=== PATIENT | female | born 1985 | race Caucasian/White ===

== ENCOUNTER → 2017-01-18 | Outpatient (CLI) | payer OTHER ==
[~2017-01-18] MED LIST: PREN0.01 PO
[2017-01-18 12:06] LABS: BETA HCG QUANT 413 MIU/ML (0-5)
== END ==
LOC: CLAB 11:14
PROVIDERS: ATTEND Obstetrics & Gynecology
DX: O26.21 Pregnancy care for patient with recurrent pregnancy loss, first trimester (principal)
CPT/HCPCS: 36415; 84144; 84702

== ENCOUNTER → 2017-01-22 | Outpatient (CLI) | payer OTHER ==
[2017-01-22 10:13] LABS: BETA HCG QUANT 1840 MIU/ML (0-5)
== END ==
LOC: CLAB 09:07
PROVIDERS: ATTEND Obstetrics & Gynecology
DX: O26.21 Pregnancy care for patient with recurrent pregnancy loss, first trimester (principal)
CPT/HCPCS: 36415; 84144; 84702

== ENCOUNTER 2017-06-08 20:06 | Emergency (ER) | payer OTHER ==
[2017-06-08] MEDS ORDERED: ACETAMINOPHEN 500 MG CPLT PO ONE (21:30)
--- NOTE | 2017-06-08 22:12 | PD ---
History of Present Illness History of Present Illness Limited ultrasound Indications: IUP at 24.2, status post fall at 6 PM Limited bedside ultrasound was performed to assess for movement, grossly assess amniotic fluid, and evaluate for retroplacental clot. An anatomic survey and detailed ultrasound was not performed. The patient was notified of this. On ultrasound the fetus was in the cephalic presentation with grossly normal CHRIS. The fetus was moving well with numerous episodes of flexion/ extension and gross movement. The placenta appeared intact without evidence of retroplacental clot and appeared to be primarily posterior in nature. Follow-up: Follow-up as clinically indicated Final diagnosis: IUP at 24.2, status post fall at 6 PM, reassuring evaluation Joan Patrick MD Jun 08, 2017 22:12
--- NOTE | 2017-06-08 22:12 | PD ---
HPI Chief Complaint Fall at 6 PM Travel History International Travel<30 Days: No Contact w/Intl Traveler<30Days: No Known Affected Area: No History of Present Illness HPI 32-year-old 011, IUP at 24.2 care complicated by prior delivery, A minus blood type The patient presents complaining of a fall at 6 PM. She reports that she was walking down a short flight of 4-5 stairs when she stepped down and landed on uneven block she then proceeded to slip down 2 stairs and fall on her hands and knees but did hit the left side of her abdomen. She, per her report, did not have direct abdominal trauma although she did hit the left to mid portion of her abdomen. She reports that her left knee is sore and her body is overall sore like she pulled a muscle. She feels like she may have also pulled a muscle in her abdomen. She denies specific abdominal pain. She denies any leaking of fluid, vaginal bleeding, painful contractions, or other uterine cramping. She reports good movement. She reports that she has a low pain tolerance. Weeks Gestation: 24 Para: 1 : 3 History Past Medical History Medical History: Denies Significant Hx Obstetric History Obstetric History Full-term delivery 1 SAB 1 Past Surgical History Narrative Surgical delivery 1 Family History Narrative Family History Denies Social History Alcohol Use: No Tobacco Use: No Substance Abuse: No Allergies-Medications (Allergen,Severity, Reaction): Coded Allergies: No Known Allergies (Unverified , 01/01/16) Home Meds Reported Medications Multivit/Min/Fol Ac/Iron/Pren ( Vit ( Plus)) Tab, 1 TAB PO DAILY, TAB 05/02/14 Review of Systems Except as stated in HPI: all other systems reviewed are Neg (except as per history of present illness) Physical Exam Narrative GENERAL: Well-nourished, well-developed patient. SKIN: Warm and dry. HEAD: Normocephalic and atraumatic. EYES: No scleral icterus. No injection or drainage. ENT: No nasal drainage noted. Mucous membranes pink. Airway patent. NECK: Supple, trachea midline. No JVD. CARDIOVASCULAR: Regular rate and rhythm without murmurs, gallops, or rubs. RESPIRATORY: Breath sounds equal bilaterally. No accessory muscle use. BREASTS: Deferred ABDOMEN/GI: Abdomen soft, non-tender, bowel sounds present, no rebound, no guarding Gravid., No abdominal tenderness on palpation, no bruising noted GENITOURINARY: Deferred FHT's: A signed heart tones in the 130s with moderate long-term variability and accelerations as appropriate for gestational age. No decelerations were noted. No contractions were noted EXTREMITIES: No cyanosis or edema. BACK: Nontender without obvious deformity. No CVA tenderness. NEUROLOGICAL: Awake and alert. Motor and sensory grossly within normal limits. Five out of 5 muscle strength in all muscle groups. Normal speech. Psychiatric: Grossly normal memory and affect Musculoskeletal: Grossly normal range of motion, gait, muscle strength Data Data Orders Orders Acetaminophen (Tylenol) (06/08/17 21:30) Cbc No Diff, Includes Plts (06/08/17 21:44) Kleihauer Betke ( Hgb) (06/08/17 21:44) Rhogam (06/08/17 21:44) Type And Screen (06/08/17 21:44) MDM Plan Assessment/plan: 1. IUP at 24.2 2. Status post fall: No evidence of direct abdominal trauma however patient did hit the side of her abdomen after falling on her knees and catching herself on her hands. monitoring for greater than 4 hours after the event was reassuring and there is no evidence of contractions or uterine irritability. A CBC and KB stain were obtained. A bedside ultrasound was performed which showed a grossly normal CHRIS, good movement, and no evidence of retroplacental clot. Discussed with the patient that the most significant risk of injury is shortly after the fall however slight increase exists so she is to return for any concerns, abdominal pain, contractions. She was given Tylenol thousand milligrams for her musculoskeletal discomforts. She was offered to be evaluated in the ED for the fall on her knee but she declined. The patient was discussed with Dr. murphy was in agreement with the plan and with discharge home. 3. Rh-: The patient was given RhoGAM as per protocol 4. well-being: Reassuring testing with reassuring heart rate tracing 5. History of prior delivery 6. Follow up with Dr. Murphy in 2-3 days or sooner if needed Diagnosis Diagnosis: Primary Impression: 24 weeks gestation of Additional Impression: Fall Disposition: DISCHARGE HOME Condition: Joan Buckner MD Jun 08, 2017 22:12
[2017-06-08 22:30] LABS: HEMATOCRIT 32.8 % (35.0-46.0); MEAN CELL VOLUME 94.6 FL (80.0-100.0); MEAN CORPUSCULAR HEMOGLOBIN 33.9 PG (27.0-34.0); MEAN CORPUSCULAR HGB CONC 35.8 % (32.0-36.0); PLATELET COUNT 218 TH/MM3 (150-450); RED BLOOD COUNT 3.47 MIL/MM3 (4.00-5.30); RED CELL DISTRIBUTION WIDTH 13.1 % (11.6-17.2); REVIEW FLAG FINAL; WHITE BLOOD COUNT 9.1 TH/MM3 (4.0-11.0)
[2017-06-08 23:44] VITALS: BP 101/57; PULSE 77; RESP 16; TEMP 98.4; O2SAT 100
== END 2017-06-08 23:50 | disposition home or self-care (01) ==
LOC: HOBED 20:06
DX: Z34.92 Encounter for supervision of normal pregnancy, unspecified, second trimester (principal); Z04.3 Encounter for examination and observation following other accident; Z3A.24 24 weeks gestation of pregnancy
CPT/HCPCS: 36415; 76815; 83030; 85027; 85461; 86850; 86900; 86901; 90384; J2790

== ENCOUNTER 2017-07-29 11:34 | Emergency (ER) | payer OTHER ==
--- NOTE | 2017-07-29 12:32 | PD ---
HPI Chief Complaint Upper abdominal cramping, nausea no vomiting Date Seen: Jul 29, 2017 Time Seen: 12:24 Travel History International Travel<30 Days: No Contact w/Intl Traveler<30Days: No Known Affected Area: No History of Present Illness HPI Patient is 32-year-old white female now at [address] winn who presents with one-day history of upper abdominal crampiness and some nausea but no vomiting. Denies leakage of fluid or vaginal bleeding. Baby is active. heart rate tracing is reactive for 31 weeks and there are no contractions seen Weeks Gestation: 31 Para: 1 : 3 History Obstetric History Obstetric History One vaginal delivery 3 years ago and one early loss Social History Alcohol Use: No Tobacco Use: No Substance Abuse: No Allergies-Medications (Allergen,Severity, Reaction): Coded Allergies: No Known Allergies (Unverified , 01/01/16) Home Meds Reported Medications Multivit/Min/Fol Ac/Iron/Pren ( Vit ( Plus)) Tab, 1 TAB PO DAILY, TAB 05/02/14 Review of Systems General / Constitutional: No: Fever, Weight Gain, Chills, Other Eyes: No: Diploplia, Blurred Vision, Visual changes, Pain, Photophobia HENT: No: Headaches, Vertigo, Lightheadedness Cardiovascular: No: Irregular Rhythm, Chest Pain or Discomfort, Palpitations, Tachycardia, Syncope, Varicosities, Edema, Cyanosis Respiratory: No: Cough, Short of Breath, Other Gastrointestinal: Nausea, Abdominal Pain, No: Vomiting, Diarrhea Genitourinary: No: Decreased Urinary Output, Oliguria Musculoskeletal: No: Limited ROM, Weakness, Cramping, Edema, Pain Skin: No Rash, No Itching, No Dryness, No Lumps, No Change in Pigmentation, No Change in Nails, No Alopecia, No Lesions Neurologic: No: Weakness, Dizziness, Syncope, Focal Abnormalities, Coordination Problem, Headache, Slurred Speech, Seizures Psychiatric: No: Depression, Suicidal Ideations, Homicidal Ideation Endocrine: No: Heat Intolerance, Cold Intolerance, Polydipsia, Polyuria, Other Physical Exam Narrative GENERAL: Well-nourished, well-developed patient. SKIN: Warm and dry. HEAD: Normocephalic and atraumatic. EYES: No scleral icterus. No injection or drainage. ENT: No nasal drainage noted. Mucous membranes pink. Airway patent. NECK: Supple, trachea midline. No JVD. CARDIOVASCULAR: Regular rate and rhythm without murmurs, gallops, or rubs. RESPIRATORY: Breath sounds equal bilaterally. No accessory muscle use. BREASTS: Bilateral exam showed no masses , no retractions, no nipple discharge. ABDOMEN/GI: Abdomen soft, non-tender, bowel sounds present, no rebound, no guarding Gravid to [-31] weeks size Fundal Height: [-31] GENITOURINARY: External Genitalia: intact and normal in appearance BUS glands: [-] Cervix: [-post] Dilatation: [closed-] Effacement: [thick-] Station: [-3] Membranes: [intact ] Uterine Contractions: none FHT's: Category: [-1] Baseline: [-133] Reactive: [yes-] Variability: [-mod] Decels: [-none] EXTREMITIES: No cyanosis or edema. BACK: Nontender without obvious deformity. No CVA tenderness. NEUROLOGICAL: Awake and alert. Motor and sensory grossly within normal limits. Five out of 5 muscle strength in all muscle groups. Normal speech. Data Data Labs Urine dipstick on OB ED is negative MDM Interpretation(s) Patient is a 32-year-old white female now [address] winn care presents complaining of upper abdominal pain that starts in the epigastric area and moves down as she describes it has been going on for about a day, she is some nausea but no vomiting. heart tones are reactive and no contractions, urinalysis negative on OB ED, her cervix is thick closed and high the pelvis, likely this is some soft tissue strain and discomfort from overactivity lifting her 4-year-old multiple times and because its in the upper epigastric area and may also be related to reflux or heartburn and that she describes does not describe it as a burning feeling. She can use over-the- counter antacids Maalox Mylanta Pepcid when necessary. Plan Plan for the patient to be at bedrest at home over the next 2 days as much as she can be, and increase her fluid intake for hydration, Tylenol when necessary , and heating pad or hot bath for symptom relief. She is to follow-up with her OB provider Dr. winn next Wednesday 5 days away Diagnosis Diagnosis: Primary Impression: Abdominal cramping affecting , antepartum Additional Impressions: Nausea alone 31 weeks gestation of Disposition: 01 DISCHARGE HOME Condition: Stable Rodrigo Day II, MD Jul 29, 2017 12:32
== END 2017-07-29 12:57 | disposition home or self-care (01) ==
LOC: HOBED 11:34
DX: O26.893 Other specified pregnancy related conditions, third trimester (principal); R10.10 Upper abdominal pain, unspecified; R11.0 Nausea; Z3A.31 31 weeks gestation of pregnancy
CPT/HCPCS: 99284

== ENCOUNTER 2017-09-17 10:06 | Emergency (ER) | payer OTHER ==
--- NOTE | 2017-09-17 10:39 | PD ---
HPI Chief Complaint Uterine contractions 38 weeks and 5 days Date Seen: Sep 17, 2017 Time Seen: 10:28 Travel History International Travel<30 Days: No Contact w/Intl Traveler<30Days: No Known Affected Area: No History of Present Illness HPI Pt is a 32 yo at 38 weeks and 5 days, who presents with c/o uterine contractions since last night. Also reports uterine cramping. No vaginal bleeding or leaking. Pt has EDC of 09-26-2017, and has had care with Dr Murphy. has been uncomplicated. Patient has previous c section 3 years ago for FTP. She has elective LTCS scheduled fro 09-20-2017. Weeks Gestation: 38 Para: 1 : 3 Miscarriage: 1 History Past Medical History Medical History: Denies Significant Hx Obstetric History Obstetric History Previous C section . FTP, 3 years ago. 1st trimester miscarriage. Past Surgical History Narrative Surgical Previous LTCS 3 years ago. Dental surgery Family History Family History: Negative Social History Alcohol Use: No Tobacco Use: No Substance Abuse: No Allergies-Medications (Allergen,Severity, Reaction): Coded Allergies: No Known Allergies (Unverified Allergy, Unknown, 08/24/17) Home Meds Reported Medications Multivit/Min/Fol Ac/Iron/Pren ( Vit ( Plus)) Tab, 1 TAB PO DAILY, TAB 05/02/14 Review of Systems Except as stated in HPI: all other systems reviewed are Neg Physical Exam Narrative GENERAL: Well-nourished, well-developed patient. SKIN: Warm and dry. HEAD: Normocephalic and atraumatic. EYES: No scleral icterus. No injection or drainage. ENT: No nasal drainage noted. Mucous membranes pink. Airway patent. NECK: Supple, trachea midline. No JVD. CARDIOVASCULAR: Regular rate and rhythm without murmurs, gallops, or rubs. RESPIRATORY: Breath sounds equal bilaterally. No accessory muscle use. BREASTS: Bilateral exam showed no masses , no retractions, no nipple discharge. ABDOMEN/GI: Abdomen soft, non-tender, bowel sounds present, no rebound, no guarding Gravid to 38 weeks size Fundal Height: [38] GENITOURINARY: External Genitalia: intact and normal in appearance BUS glands: [wnl] Cervix: [soft] Dilatation: [closed] Effacement: [50%] Station: [2] Presentation: [vertex] Membranes: [intact] Uterine Contractions: [irregular] FHT's: Category: [1] Baseline: [130s] Reactive: [-] Variability: [moderate] Decels: [none] EXTREMITIES: No cyanosis or edema. BACK: Nontender without obvious deformity. No CVA tenderness. NEUROLOGICAL: Awake and alert. Motor and sensory grossly within normal limits. Five out of 5 muscle strength in all muscle groups. Normal speech. Data Data Vital Signs Reviewed: Yes Group B Strep: Negative MDM Medical Record Reviewed: Yes Plan Pt is a 32 yo at 38 weeks and 5 days who presents for evaluation for labor. status reassuring. Cervix is closed and 50% effaced. She is not ruptured. Pt has had a previous C section, and scheduled for repeat 09/20/2017 Patient was observed for almost 1 hour. status remained Cat 1 throughout. Contractions 3- 10 minutes, do not palpate strong and patient comfortable. D/w Dr Murphy. Will send home and to return with stronger contractions, or vaginal bleeding, bleeding or abdominal pain. Labor precautions. Diagnosis Diagnosis: Primary Impression: with 38 completed weeks gestation Additional Impressions: Previous section complicating False labor after 37 completed weeks of gestation [place] Elena MD Sep 17, 2017 10:39
== END 2017-09-17 11:29 | disposition home or self-care (01) ==
LOC: HOBED 10:06
DX: O47.1 False labor at or after 37 completed weeks of gestation (principal); Z3A.38 38 weeks gestation of pregnancy
CPT/HCPCS: 59025

== ENCOUNTER 2017-09-20 05:26 | Inpatient (IN) | payer OTHER ==
[~2017-09-20] VITALS: Ht 167.6 cm; Wt 92.0 kg
[2017-09-20] MEDS ORDERED: CITRIC ACID-SODIUM CITRATE LIQ 30 ML UDC PO SCH (05:45)
[2017-09-20] MEDS ORDERED: ceFAZolin 2 GM PREMIX 50 ML IV SCH (05:45)
[2017-09-20] MEDS ORDERED: LACTATED RINGER'S 1000 ML IV ONE (05:45)
[2017-09-20] MEDS: LACTATED RINGER'S 1000 ML IV SCH ×3 (06:18→19:05)
[2017-09-20 06:41] LABS: AUTOMATED NEUTROPHIL # 5.6 TH/MM3 (1.8-7.7); BASOPHIL % 0.4 % (0.0-2.0); EOSINOPHIL % 0.5 % (0.0-4.0); HEMATOCRIT 34.6 % (35.0-46.0); HEMOGLOBIN 12.3 GM/DL (11.6-15.3); LYMPH % 17.6 % (9.0-44.0); LYMPHOCYTE # 1.4 TH/MM3 (1.0-4.8); MEAN CELL VOLUME 93.1 FL (80.0-100.0); MEAN CORPUSCULAR HEMOGLOBIN 33.1 PG (27.0-34.0); MEAN CORPUSCULAR HGB CONC 35.6 % (32.0-36.0); MEAN PLATELET VOLUME 7.8 FL (7.0-11.0); MONO % 9.4 % (0.0-8.0); MONOCYTE # 0.7 TH/MM3 (0-0.9); NEUT % 72.1 % (16.0-70.0); PLATELET COUNT 213 TH/MM3 (150-450); RED BLOOD COUNT 3.72 MIL/MM3 (4.00-5.30); WHITE BLOOD COUNT 7.8 TH/MM3 (4.0-11.0)
[2017-09-20 06:42] LABS: AMORPHOUS SEDIMENT, URINE RARE; BACTERIA, URINE RARE /hpf; BILIRUBIN, URINE NEG (NEG); BLOOD, URINE NEG (NEG); GLUCOSE,URINE NEG (NEG); HYALINE CAST, URINE 1 /lpf (RARE); KETONE, URINE NEG (NEG); MUCUS URINE FEW /lpf (OCC); NITRITE,URINE NEG (NEG); PH, URINE 7.5 (5.0-8.5); SQUAMOUS EPITHELIAL CELL URINE 2 /hpf (0-5); TRANSITIONAL EPI CELLS, URINE <1 /hpf; URINE COLOR YELLOW (YELLW/STRAW); URINE LEUKOCYTE ESTERASE NEG (NEG)
[2017-09-20] MEDS ORDERED: MORPHINE SULFATE PF 5 MG/10 ML VIAL ONE (07:13)
[2017-09-20] MEDS ORDERED: ACETAMINOPHEN 1000 MG/100 ML 100 ML IV ONE (07:13)
[2017-09-20] MEDS ORDERED: EPIDURAL-DIPHENHYDRAMINE HCL 50 MG CAP PO PRN (07:25)
[2017-09-20] MEDS ORDERED: EPIDURAL-NALOXONE HCL 0.4 MG/ML AMP IV PUSH PRN (07:25)
[2017-09-20] MEDS ORDERED: EPIDURAL-DIPHENHYDRAMINE HCL 50 MG/ML VIAL IV PUSH PRN (07:25)
[2017-09-20] MEDS ORDERED: EPIDURAL-DO NOT ADMINISTER ANTICOAGULANTS PRN (07:25)
[2017-09-20] MEDS ORDERED: EPIDURAL-NO SYSTEMIC NARCOTICS PRN (07:25)
[2017-09-20] MEDS ORDERED: ONDANSETRON HCL 4 MG/2 ML VIAL IVP PRN (07:30)
[2017-09-20] MEDS ORDERED: SIMETHICONE 80 MG CHEWABLE TAB PO PRN (07:30)
[2017-09-20] MEDS ORDERED: MEASLES, MUMPS, RUBELLA VACCINE 0.5 ML VIAL SQ ONE (07:30)
[2017-09-20] MEDS ORDERED: ePHEDrine/NS 25 MG/5 ML SYRINGE ONE (07:34)
[2017-09-20] MEDS ORDERED: OXYTOCIN 30 UNITS-500ML PREMIX 500 ML IV ONE (07:45)
[2017-09-20] MEDS: ACETAMINOPHEN 1000 MG/100 ML VIAL IV SCH ×3 (08:00→23:14)
[2017-09-20] MEDS ORDERED: HYDROmorphone HCL PF 2 MG/ML VIAL ONE (09:08)
[2017-09-20] MEDS ORDERED: OXYTOCIN 30 UNITS-500ML PREMIX 500 ML ONE (09:37)
[2017-09-20] MEDS ORDERED: KETOROLAC TROMETHAMINE 60 MG/2 ML (IM) VIAL IM PRN (11:00)
[2017-09-20] MEDS ORDERED: KETOROLAC TROMETHAMINE 30 MG/ML (IVP) VIAL IV PUSH PRN (11:00)
[2017-09-20] MEDS ORDERED: ONDANSETRON HCL 4 MG/2 ML VIAL IV ONE (12:00)
[2017-09-20] MEDS ORDERED: DEXAMETHASONE SOD PHOS 4 MG/ML VIAL IV ONE (12:00)
[2017-09-20] MEDS ORDERED: ePHEDrine/NS 25 MG/5 ML SYRINGE IV ONE (12:00)
[2017-09-20] MEDS ORDERED: KETOROLAC TROMETHAMINE 30 MG/ML (IVP) VIAL IV PUSH ONE (12:00)
[2017-09-20] MEDS ORDERED: LACTATED RINGER'S 1000 ML INJ 1,000 ML IV ONE (12:00)
[2017-09-20] MEDS ORDERED: OXYTOCIN 10 UNIT/ML AMP IV ONE (12:00)
[2017-09-20] MEDS ORDERED: LACTATED RINGER'S 1000 ML INJ 1,000 ML IV SCH (13:04)
--- NOTE | 2017-09-20 17:09 | MP ---
cc: TORIENAGA DATE OF SURGERY: 09/20/2017. PREOPERATIVE DIAGNOSIS: 1. Term 2. Previous section. POSTOPERATIVE DIAGNOSIS: 1. Term . 2. Previous section. 3. Delivered. 4. Left ovarian cyst. OPERATIVE PROCEDURE PERFORMED: Repeat low transverse section and left ovarian cystectomy. SURGEON: Naga Murphy MD. EFFICIENCY CLERK: DANDRE Brown. ANESTHESIA: Spinal. ESTIMATED BLOOD LOSS FOR THE PROCEDURE: About 600 cc. FLUIDS: 1.5 liters of crystalloid. OBJECTIVE FINDINGS: Following the induction of adequate spinal anesthesia, the patient was prepped and draped supine on the operating table in the left lateral tilt position in the usual sterile fashion with the bladder being drained via Toussaint catheterization. The abdomen was opened through a Pfannenstiel incision using a knife to cut down through skin to the fascia excising her old scar in the process. The fascia was opened transversely and stripped from the muscles. The rectus muscle was split in the midline and the peritoneum opened sharply without incident. The bladder flap was taken down sharply and retracted with the Tanvi blade. The lower uterine segment was incised transversely with a knife and extended by blunt dissection. There was clear fluid. The baby was in the LOT position. The vacuum extractor was applied to the occiput and used to gently lift the head through the abdominal wound. The mouth was suctioned. The cord was clamped and cut and the baby was passed to the awaiting team, a viable vigorous male with nuchal cord x1, Apgars 8 and 9 and weight 8 pounds, 3 ounces. Cord blood was sent for typing. The placenta was sent for donation. The uterine cavity was cleaned with laps. The uterus was exteriorized and closed in two layers of running suture, first with a running, locking stitch of #0 Vicryl and the second with a running imbricating stitch #0 Vicryl. Inspection was normal. The right tube and ovary were normal. The left ovary was cystic with a 4 cm cyst that was aspirated for 12 cc of clear fluid. The cyst wall was excised with a Bovie and sent for permanent study. The uterus and ovaries and tubes were placed back into the pelvis. Irrigation was performed. No bleeding was evident. The bladder flap was closed with a running stitch of 3-0 Vicryl. Inspection of the ovary cystectomy site revealed no bleeding. All lap structures were removed. The counts were correct. The anterior peritoneum was closed with a running stitch of 2-0 Vicryl and the fascia with a running locking stitch of #0 Vicryl corner to midline and tied. The subcutaneous was closed with 3-0 Vicryl and the skin was closed with running subcuticular 3-0 Monocryl. Dermabond was applied. All counts were correct. The patient was awake and taken to the recovery room in good condition. MD SHE Chilel/ANU /8:21 AM /4:52 PM
[2017-09-20] MEDS: IBUPROFEN 600 MG TAB PO PRN ×2 (17:10→23:00)
[2017-09-20] MEDS: oxyCODONE/ACETAMINOPHEN 5 MG/325 MG TAB PO PRN ×2 (17:10→23:00)
[2017-09-20] MEDS ORDERED: OXYTOCIN 30 UNITS-500ML PREMIX 500 ML IV PRN (18:15)
[2017-09-20] MEDS ORDERED: ZOLPIDEM TARTRATE 5 MG TAB PO PRN (21:00)
[2017-09-20] MEDS: DOCUSATE SODIUM 50 MG/SENNA 8.6 MG TAB PO PRN (22:59)
[2017-09-21] MEDS: LACTATED RINGER'S 1000 ML IV SCH ×2 (01:45→21:45)
[2017-09-21] MEDS: IBUPROFEN 600 MG TAB PO PRN ×4 (05:06→23:40)
[2017-09-21] MEDS: oxyCODONE/ACETAMINOPHEN 5 MG/325 MG TAB PO PRN ×6 (05:06→23:40)
[2017-09-21 08:00] VITALS: BP 81/54; PULSE 66; RESP 16; TEMP 98; O2SAT 98
[2017-09-21] MEDS ORDERED: diphenhydrAMINE HCL 25 MG CAP PO PRN (08:30)
[2017-09-21 09:07] LABS: BASOPHIL % 0.4 % (0.0-2.0); EOSINOPHIL % 0.4 % (0.0-4.0); HEMATOCRIT 29.3 % (35.0-46.0); HEMOGLOBIN 10.2 GM/DL (11.6-15.3); LYMPH % 11.9 % (9.0-44.0); LYMPHOCYTE # 1.2 TH/MM3 (1.0-4.8); MEAN CELL VOLUME 94.6 FL (80.0-100.0); MEAN CORPUSCULAR HEMOGLOBIN 32.8 PG (27.0-34.0); MEAN CORPUSCULAR HGB CONC 34.7 % (32.0-36.0); MONO % 6.9 % (0.0-8.0); MONOCYTE # 0.7 TH/MM3 (0-0.9); NEUT % 80.4 % (16.0-70.0); PLATELET COUNT 187 TH/MM3 (150-450)
[2017-09-21 09:28] LABS: BICARBONATE 23.2 MEQ/L (21.0-32.0); CALCIUM 8.4 MG/DL (8.5-10.1); CREATININE 0.67 MG/DL (0.50-1.00)
--- NOTE | 2017-09-21 11:35 | MH ---
cc: NAGA VOGT DATE OF ADMISSION 09/20/2017 ADMITTING DIAGNOSIS 1. Term . 2. Previous . HISTORY OF PRESENT ILLNESS The patient is a 32-year-old white female, para 1-0-1-1, LMP of 12/08/2016, EDC of 09/14/2017 by dates, 09/26/2017 by early ultrasound. Her course has been benign. labs include Rh negative, VDRL nonreactive, rubella immune, LE negative, Pap negative. Glucose screen normal. Strep culture was negative. Previous delivery by for failure to progress. PAST MEDICAL HISTORY PREVIOUS SURGERY 1. T&A age 7. 2. Third molars age 18. MEDICATIONS Vitamins. ALLERGIES None. TRANSFUSIONS None. ILLNESSES History of anxiety and depression, resolved. SOCIAL HISTORY She is . 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 Alcohol, tobacco and drugs are none. FAMILY HISTORY Noncontributory. PHYSICAL EXAMINATION GENERAL: A well-nourished, well-developed white female. VITAL SIGNS: Stable. HEENT: Normal. CHEST: Clear. HEART: Regular rate. BREASTS: Symmetrical. ABDOMEN: Benign. PELVIC: Normal external genitalia and BUS. Vagina is normal. Cervix is normal. Uterus is gravid. EFW 3300 grams, vertex. Cervix is closed. IMAGING Ultrasound shows placenta posterior. ASSESSMENT As above. PLAN She is now admitted for repeat section. While in the office I explained the procedure, risks, benefits and complications, and she elected to proceed. MD SHE Chilel/SU /6:18 AM /11:31 AM
[2017-09-21] MEDS: DOCUSATE SODIUM 50 MG/SENNA 8.6 MG TAB PO PRN (18:00)
[2017-09-21 20:00] VITALS: BP 108/69; PULSE 63; RESP 16; TEMP 97.4; O2SAT 97
[2017-09-22] MEDS: LACTATED RINGER'S 1000 ML IV SCH (04:25)
[2017-09-22] MEDS: DOCUSATE SODIUM 50 MG/SENNA 8.6 MG TAB PO PRN (05:31)
[2017-09-22] MEDS: oxyCODONE/ACETAMINOPHEN 5 MG/325 MG TAB PO PRN ×2 (05:32→09:42)
[2017-09-22] MEDS: IBUPROFEN 600 MG TAB PO PRN (05:32)
[2017-09-22 08:00] VITALS: BP 107/57; PULSE 70; RESP 18; TEMP 98.2
[2017-09-22] MEDS ORDERED: OXYC1TAB63 PO (08:09)
--- NOTE | 2017-09-22 08:10 | HHI.DCPOC ---
Discharge Care Plan Report Symptoms to Your Doctor -Temperature above 100.5 degrees -Redness, of incision or excessive or foul smelling drainage -Unusual pain or calf pain -Increased vaginal bleeding -Painful or difficulty urinating -Feelings of extreme sadness or anxiety after 2 weeks Goals to Promote Your Health * To prevent worsening of your condition and complications * To maintain your health at the optimal level Directions to Meet Your Goals Take your medications as prescribed Follow your dietary instruction Follow activity as directed Ensure plenty of rest for recovery Drink fluids for hydration Keep your appointments as scheduled Take your immunizations and boosters as scheduled If your symptoms worsen call your PCP, if no PCP go to Urgent Care Center or Emergency Room Smoking is Dangerous to Your Health. Avoid second hand smoke Call the 24-hour crisis hotline for domestic abuse at Wilbur Murphy MD Sep 22, 2017 08:10
[2017-09-22] MEDS ORDERED: DIPHTH/TETANUS/ACEL PERTUSSIS (BOOSTER) 0.5 ML VIAL/PFS IM ONE (09:00)
--- NOTE | 2017-09-23 08:43 | MD ---
cc: Wilbur Murphy MD DATE OF DISCHARGE: 09/22/2017 ADMISSION DIAGNOSIS: 1. Term . 2. Previous section. DISCHARGE DIAGNOSIS: 1. Term . 2. Previous section. 3. Delivered. PROCEDURE PERFORMED: Repeat low transverse section on 09/20/2017. HISTORY OF PRESENT ILLNESS: The patient is a 32-year-old white female, para 1-0-1-1 with an EDC of 09/26/2017 by early ultrasound. Her preoperative course was benign. Her blood type is negative. labs were normal. Strep culture was negative. Her first delivery was section for failure to progress. HOSPITAL COURSE: The patient was admitted for repeat section on 09/20/2017, had a viable vigorous male, Apgars of 8 and 9, birthweight 3700 grams. did well. DISPOSITION AND RECOMMENDATIONS: Discharge on 09/22/2017. She was carefully instructed in , postop, wound inspection and care. The baby was Rh negative, so RhoGAM is indicated. She was given a prescription for Percocet 5 1-2 by mouth every 4 hours as needed pain, #60. MD SHE Chilel/JANETT , 08:15 AM , 07:21 PM
== END 2017-09-22 11:12 | disposition home or self-care (01) | DRG 766 ==
LOC: H2EB 05:26 → H1EA 09:45
PROVIDERS: ADMIT Obstetrics & Gynecology; ATTEND Obstetrics & Gynecology
PROC: 10D00Z1 Extraction of Products of Conception, Low, Open Approach (ICD-10-PCS; principal; 2017-09-20)
PROC: 0UB10ZZ Excision of Left Ovary, Open Approach (ICD-10-PCS; 2017-09-20)
DX: O34.211 Maternal care for low transverse scar from previous cesarean delivery (principal); O69.81X0 Labor and delivery complicated by cord around neck, without compression, not applicable or unspecified; N83.202 Unspecified ovarian cyst, left side; Z37.0 Single live birth; Z23 Encounter for immunization
CPT/HCPCS: 59025; 80048; 80307; 81001; 85025; 86077; 86850; 86870; 86900; 86901; 86920; 86922; 88173; 88304; 88307; J0131; J0690; J1100; J1170; J1885; J2274; J2405; J2590; J7120